=== PATIENT | male | born 1960 | race Caucasian/White ===

== ENCOUNTER → 2018-06-10 11:53 | Outpatient (CLI) | payer MEDICAID, SELFPAY ==
[2018-06-10 12:45] LABS: Alanine Aminotransferase 19 U/L (12-78); Albumin Level 3.9 gm/dL (3.4-5.0); Albumin/Globulin Ratio 1.2 (1.1-1.8); Alkaline Phosphatase 110 U/L (46-116); Anion Gap 9.5 mEq/L (5-15); Aspartate Amino Transferase 12 U/L (15-37); Bilirubin,Total 0.3 mg/dL (0.2-1.0); Blood Urea Nitrogen 8 mg/dL (7-18); Calcium 9.4 mg/dL (8.5-10.1); Carbon Dioxide 30 mmol/L (21.0-32.0); Chloride 108 mmol/L (98-107); Chol/HDL Ratio 3.2 (1-3.5); Cholesterol 202 mg/dL (140-200); Estimated Glomerular Filt Rate 99 ml/min (>60); GFR (African American) 120 ML/MIN (>60); Globulin 3.2 gm/dl (1.3-3.2); Glucose 102 mg/dL (74-106); HDL Cholesterol 64 mg/dL (27-67); LDL Cholesterol 123 mg/dL (0-130); Potassium 4.5 mmoL/L (3.5-5.1); Sodium 143 mmol/L (136-145); Total Protein,Serum 7.1 gm/dL (6.4-8.2); Triglycerides 76 mg/dL (30-200); VLDL Cholesterol 15 mg/dL (0-40)
== END ==
PROVIDERS: PCP Nurse Practitioner Family; Visit Provider Nurse Practitioner Family
DX: Z00.00 Encounter for general adult medical examination without abnormal findings (principal); I10 Essential (primary) hypertension
CPT/HCPCS: 36415; 80053; 80061

== ENCOUNTER → 2019-07-11 10:59 | Outpatient (CLI) | payer SELFPAY ==
[2019-07-11 12:18] LABS: Alanine Aminotransferase 17 U/L (12-78); Albumin Level 3.8 gm/dL (3.4-5.0); Albumin/Globulin Ratio 1.2 (1.1-1.8); Alkaline Phosphatase 107 U/L (46-116); Anion Gap 13.5 mEq/L (5-15); Aspartate Amino Transferase 10 U/L (15-37); Bilirubin,Total 0.3 mg/dL (0.2-1.0); Blood Urea Nitrogen 7 mg/dL (7-18); Calcium 9.2 mg/dL (8.5-10.1); Carbon Dioxide 28 mmol/L (21.0-32.0); Chloride 103 mmol/L (98-107); Chol/HDL Ratio 2.6 (1-3.5); Cholesterol 172 mg/dL (140-200); Creatinine,Serum 0.79 mg/dL (0.70-1.30); Estimated Glomerular Filt Rate 100 ml/min (>60); GFR (African American) 121 ML/MIN (>60); Globulin 3.1 gm/dl (1.3-3.2); Glucose 113 mg/dL (74-106); HDL Cholesterol 67 mg/dL (27-67); LDL Cholesterol 99 mg/dL (0-130); Potassium 4.5 mmoL/L (3.5-5.1); Sodium 140 mmol/L (136-145); Total Protein,Serum 6.9 gm/dL (6.4-8.2); Triglycerides 31 mg/dL (30-200); VLDL Cholesterol 6 mg/dL (0-40)
== END ==
LOC: LAB 10:59
PROVIDERS: Visit Provider Nurse Practitioner Family
DX: Z00.00 Encounter for general adult medical examination without abnormal findings (principal); I10 Essential (primary) hypertension; E78.5 Hyperlipidemia, unspecified
CPT/HCPCS: 36415; 80053; 80061

== ENCOUNTER 2023-09-28 07:28 | Outpatient (CLI) | payer MEDICARE, SELFPAY ==
--- NOTE | 2023-09-28 07:31 | CT_ITS ---
FINAL REPORT TECHNIQUE: Axial CT images of the chest were obtained without contrast. Low-dose protocol was utilized. This study was performed with techniques to keep radiation doses as low as reasonably achievable (ALARA). Individualized dose reduction techniques using automated exposure control or adjustment of mA and/or kV according to the patient's size were employed. CLINICAL HISTORY: H/O TOBACCO USE CURRENT SMOKER 1.5PPD X50 YEARS COMPARISON: None FINDINGS: CT CHEST WITHOUT, LOW DOSE SCREENING CT Di Vol: 2.90 mGy DLP: 116.72 mGy*cm There is no axillary, mediastinal, or hilar adenopathy. The heart size is normal. There is no pleural or pericardial effusion. The lung windows show scarring at the lung apices. There is a calcified granuloma in the inferior left upper lobe. There is a noncalcified spiculated mass in the right middle lobe measuring 7 mm, best seen on image 69 of series 4. There are extensive changes of centrilobular emphysema. Mild irregular density in the periphery of the right lung base is probably due to atelectasis. Limited images of the upper abdomen demonstrate no acute findings. IMPRESSION: 7 mm irregular nodule right mid lobe. LR Category 3: 6 month follow-up low-dose chest CT is recommended. Reviewed, Interpreted and Dictated by Steve Reyes MD Transcribed by Jeanine Olmstead Authenticated and [facility]
== END 2023-09-28 23:59 ==
LOC: RAD 07:28
PROVIDERS: PCP Nurse Practitioner Family; Visit Provider Nurse Practitioner Family
DX: Z12.2 Encounter for screening for malignant neoplasm of respiratory organs; Z87.891 Personal history of nicotine dependence
CPT/HCPCS: 71271

== ENCOUNTER 2024-12-19 14:23 | Outpatient (CLI) | payer MEDICARE, SELFPAY ==
--- NOTE | 2024-12-19 14:25 | CT_ITS ---
FINAL REPORT TECHNIQUE: Thin section axial images were obtained from the lung apices to the upper abdomen by computed tomography. Reformatted images were obtained and reviewed. This study was performed with techniques to keep radiation doses al low as reasonably achievable (ALARA). Individualized dose reduction techniques using automated exposure control or adjustment of mA and/or kV according to the patient's size were employed. CLINICAL HISTORY: HX OF TOBACCO current smoker 1ppd x45 years COMPARISON: 09/28/2023 FINDINGS: CHEST CT LOW DOSE 64-year-old male, current smoker, [id number] history. CTDI vol (mGy): 2.90 DLP (mGy-cm): 120.89 There is no axillary adenopathy. There is no mediastinal or hilar mass or adenopathy. The heart is normal in size. There is no pericardial or pleural effusion. There are moderate to severe changes of centrilobular emphysema. Lung window images demonstrate biapical pleural and parenchymal scarring. There is also scarring in the medial lung bases bilaterally. The right middle lobe 7 mm nodule seen on the prior CT of 09/28/2023 is no longer seen. Limited images of the upper abdomen are unremarkable. IMPRESSION: Lung-RADS category 1 S, the S designation for moderate to severe changes of centrilobular emphysema.. Recommend 12 month follow up low dose chest CT. Reviewed, Interpreted and Dictated by Steve Reyes MD Transcribed by Nieves Lares Authenticated and [facility]
== END 2024-12-19 23:59 | disposition home or self-care (01) ==
LOC: RAD 14:24
PROVIDERS: PCP Nurse Practitioner Family; Visit Provider Nurse Practitioner Family
DX: F17.210 Nicotine dependence, cigarettes, uncomplicated (principal)
CPT/HCPCS: 71271